=== PATIENT | male | born 1960 | race Caucasian/White ===

== ENCOUNTER 2020-07-29 00:33 | Emergency (ER) | payer MEDICARE, OTHER ==
[2020-07-29 01:42] LABS: ABSOLUTE BASOPHILS # (AUTO) 0.1 10^3/uL (0.0-0.2); ABSOLUTE EOSINOPHILS # (AUTO) 0.2 10^3/uL (0.0-0.6); ABSOLUTE LYMPHOCYTES (AUTO) 2.6 10^3/uL (0.5-4.7); ABSOLUTE MONOCYTES (AUTO) 0.5 10^3/uL (0.1-1.4); BASOPHILS % (AUTO) 0.9 % (0-2); EOSINOPHILS % (AUTO) 1.9 % (0-6); HEMATOCRIT 42.4 % (37.9-51.0); HEMOGLOBIN 14.3 g/dL (13.5-17.0); LYMPHOCYTES % (AUTO) 31.2 % (13-45); MEAN CORPUSCULAR HGB CONC 33.8 g/dL (32.0-36.0); MEAN CORPUSCULAR VOLUME 86 fl (80-97); MONOCYTES % (AUTO) 6.3 % (3-13); PLATELET COUNT 355 10^3/uL (150-450); RED BLOOD COUNT 4.95 10^6/uL (4.35-5.55); RED CELL DISTRIBUTION WIDTH 15.4 % (11.5-14.0); SEGMENTED NEUTROPHILS % (AUTO) 59.7 % (42-78); TOTAL CELLS COUNTED % (AUTO) 100 %; WHITE BLOOD COUNT 8.4 10^3/uL (4.0-10.5)
[2020-07-29 01:45] LABS: ALBUMIN 4.3 g/dL (3.5-5.0); ALKALINE PHOSPHATASE 73 U/L (38-126); ANION GAP 14 (5-19); ASPARTATE AMINO TRANSFERASE 27 U/L (17-59); BILIRUBIN,DIRECT 0.3 mg/dL (0.0-0.4); BILIRUBIN,TOTAL 0.4 mg/dL (0.2-1.3); BLOOD UREA NITROGEN 16 mg/dL (7-20); CALCIUM 9.4 mg/dL (8.4-10.2); CARBON DIOXIDE 24 mmol/L (22-30); CHLORIDE 105 mmol/L (98-107); CREATINE KINASE 137 U/L (55-170); GLUCOSE 102 mg/dL (75-110); POTASSIUM 4.3 mmol/L (3.6-5.0); TOTAL PROTEIN 7.2 g/dL (6.3-8.2)
[2020-07-29 01:57] LABS: CREATINE KINASE MB 1.46 ng/mL (<4.55)
[2020-07-29 02:03] LABS: TROPONIN I < 0.012 ng/mL
[2020-07-29] MEDS ORDERED: MORPHINE SULFATE 10 MG/ML INJ IV ONE (03:02)
[2020-07-29] MEDS ORDERED: DIAZEPAM 2 MG TABLET PO ONE (04:15)
[2020-07-29] MEDS ORDERED: DIAZEPAM 5 MG TABLET PO ONE (04:17)
--- NOTE | 2020-07-29 04:18 | ER Document Report ---
ED Cardiac - General Chief Complaint: Chest Pain Stated Complaint: CHEST PAIN X 4 DAYS Time Seen by Provider: 07/29/20 02:26 Primary Care Provider: TRINITY VACA MD [ACTIVE STAFF] - Follow up in 3-5 days Notes: Patient is a 59-year-old male who presents emergency department with a chief complaint of chest pain and neck pain. Patient states that his symptoms started a few months ago, but over the past couple weeks has gotten worse. Describes his pain as an aching pain. States that he also feels this in his shoulder/neck area. Patient has history of cardiac stents in the past. Also reports that he has not followed up with a wheel fitter since his heart attack 3 years ago. Patient is an everyday smoker. - Related Data Allergies/Adverse Reactions: No Known Allergies Allergy (Unverified 07/29/20 01:53) Past Medical History - Social History Smoking Status: Current Every Day Smoker Family History: Reviewed & Not Pertinent Review of Systems - Review of Systems Notes: REVIEW OF SYSTEMS: CONSTITUTIONAL : Denies recent illness. Denies recent unintentional weight loss. Denies fever, chills, or sweats. EENT: Denies eye, ear, throat, or mouth pain, discharge, or symptoms. Denies nasal or sinus congestion. CARDIOVASCULAR: See HPI. RESPIRATORY: Denies shortness of breath, cough, congestion, difficulty breathing, or wheezing. GASTROINTESTINAL: Denies nausea, vomiting, and diarrhea. Denies abdominal pain. Denies constipation. GENITOURINARY: Denies difficulty urinating, burning, blood in urine, urgency or frequency. MUSCULOSKELETAL: See HPI. SKIN: Denies rash, itchiness, or lesions HEMATOLOGIC : Denies easy bruising or bleeding. LYMPHATIC: Denies swollen, painful, enlarged glands. NEUROLOGICAL: Denies no numbness or tingling denies weakness. Denies headache. Denies altered mental status. Denies alteration in speech. PSYCHIATRIC: Denies stress, anxiety, alteration in sleep patterns, or depression. All other systems reviewed and negative. Physical Exam - Vital signs Vitals: Temp 98.0 F 07/29/20 00:34 - Notes Notes: PHYSICAL EXAMINATION: GENERAL: Appears well, healthy, well-nourished, no acute distress. HEAD: Normocephalic, atraumatic. EYES: PERRL, conjunctiva normal, all extraocular movements intact, sclera nonicteric ENT: Moist mucous membranes. NECK: Supple, no noticeable swelling, redness, rash. Normal range of motion. Tenderness upon palpation to left side of neck. LUNGS: Equal breath sounds bilaterally and clear to auscultation. No wheezes rales or rhonchi. CARDIOVASCULAR: S1-S2, tachycardic with standing. Radial pulses 2+, normal. ABDOMEN: Normoactive bowel sounds. Soft, nontender, no guarding, no rebound tenderness, and no masses palpated. EXTREMITIES: Normal strength and range of motion, no pitting or edema. No cyanosis. NEUROLOGICAL: Moves all extremities upon command. Strength 5/5 in all extremit ies. PSYCH: Normal mood, normal affect. SKIN: Warm, dry. No rash, lesions, ulcerations noted. Normal skin turgor. Course - Re-evaluation Re-evalutation: 07/29/20 04:18 Patient reports that his pain is worse after receiving the morphine. We will give him a dose of Valium, as he is slightly anxious in appearance. 07/29/20 06:26 Hematology is unremarkable. Chemistries are also unremarkable. Troponin is negative x2. CTA of the chest does not show a pulmonary emboli, but the patient does have a bulging disc noted to see 6 through 7. This is the most likely cause of his pain. I discussed this in detail with the patient. Advised him to make sure that he follows up with a regular doctor. Patient states that he does feel little bit better after receiving the Valium. We will give him a few doses of this, as he appears anxious. Blood pressure is much better. We will also refer him to cardiology for follow-up. He is in agreement with this plan. Follow-up precautions were given. Verbal discharge instructions were given to the patient. They verbalized understanding. They are stable for discharge. - Vital Signs Vital signs: Temp Pulse Resp BP Pulse Ox 98.0 F 14 128/81 H 94 07/29/20 00:34 07/29/20 07:01 07/29/20 07:00 07/29/20 07:01 - Laboratory Results Result Diagrams: 07/29/20 00:50 07/29/20 00:50 Laboratory Results Interpreted: 07/29/20 00:50 RDW 15.4 H Critical Laboratory Results Reviewed: No Critical Results - Radiology Results Critical Radiology Results Reviewed: No Critical Results - EKG Interpretation by Me Additional EKG results interpreted by me: Sinus tachycardia. Rate 105. NE 114; QRS 70; QT 332; QTc 439. No ST elevations or depressions noted. No other EKG for comparison. Discharge - Discharge Clinical Impression: Chest pain Qualifiers: Chest pain type: unspecified Qualified Code(s): R07.9 - Chest pain, unspecified Condition: Stable Disposition: HOME, SELF-CARE Additional Instructions: You were seen today in the emergency department for chest pain. Your work-up was very reassuring. The pain that you are feeling is most likely due to a bulging disc in your neck/upper back. Please follow-up with a primary care provider. Follow-up with your wheel fitter below. Take your blood pressure medication as prescribed. The only place you can cloth picker your prescription is at the [facility]. Prescriptions: Diazepam [Valium 2 mg Tablet] 2 mg PO Q6HP PRN #6 tablet PRN Reason: Referrals: TRINITY VACA MD [ACTIVE STAFF] - Follow up in 3-5 days
--- NOTE | 2020-07-29 04:31 | RADIOLOGY REPORT (SQ) ---
EXAM DESCRIPTION: CT CHEST ANGIOGRAPHY WITHOUT THEN WITH IV CONTRAST COMPLETED DATE/TME: 07/29/2020 04:00 CLINICAL HISTORY: 59 years Male, eval PE? Comparison: CR, same day. Technique: IV contrast. Coronal and sagittal reformat. 3d reconstruction. This exam was performed according to our departmental dose-optimization program, which includes automated exposure control, adjustment of the mA and/or kV according to patient size and/or use of iterative reconstruction technique.[facility]: Dose Right [facility]: CareDose [facility]: Dose Right [facility]: Teradose 4D [facility]: Sulfagenix LIMITATIONS: Quality of pulmonary arteriogram: Suboptimal. Findings: No pulmonary embolus. No right ventricular strain. Centrilobular emphysema. Hepatic steatosis. Advanced coronary arterial calcification/stent. Atherosclerotic vascular disease. Left sixth through eighth posterior rib deformities indicative of prior injury. Small C6-C7 disc bulge. Inferior neck, axillae, mediastinum, airway, lymphatics, heart, vasculature, upper abdomen, and musculoskeleton appear otherwise unremarkable. Impression: 1. No pulmonary embolus. 2. No acute cardiopulmonary findings.Centrilobular emphysema. 3. Hepatic steatosis. 4. Advanced coronary arterial calcification/stent.
[2020-07-29 07:11] VITALS: BP 128/81
--- NOTE | 2020-07-29 07:49 | EKG REPORT ---
SEVERITY:- BORDERLINE ECG - SINUS TACHYCARDIA BORDERLINE T WAVE ABNORMALITIES : Confirmed by: Tang Zavala MD 29-Jul-2020 07:48:53
== END 2020-07-29 07:21 | disposition home or self-care (01) ==
LOC: ER 00:33
DX: R07.9 Chest pain, unspecified (principal); M50.823 Other cervical disc disorders at C6-C7 level; K76.0 Fatty (change of) liver, not elsewhere classified; I25.10 Atherosclerotic heart disease of native coronary artery without angina pectoris; I25.2 Old myocardial infarction; F17.200 Nicotine dependence, unspecified, uncomplicated; Z95.5 Presence of coronary angioplasty implant and graft
CPT/HCPCS: 93005; 99285; 96374; 36415; 82553; 82550; 85025; 80053; 84484; 71275; 93010; A9270; J2270